=== PATIENT | female | born 1985 | race Caucasian/White ===

== ENCOUNTER → 2020-07-14 | Outpatient (CLI) | payer OTHER ==
--- NOTE | 2020-07-14 11:38 | MM ---
Reason for exam: clinical finding. History: Taking hormonal contraceptives beginning at age 18. Physical Findings: Nurse did not find any significant physical abnormalities on exam. MG 3D Diag Mammo W/Cad INES Bilateral CC, MLO, and XCCL view(s) were taken. The breast tissue is heterogeneously dense. This may lower the sensitivity of mammography. These results were verbally communicated with the patient and result sheet given to the patient on 07/14/20. ASSESSMENT: Incomplete: need additional imaging evaluation, BI-RAD 0 RECOMMENDATION: Ultrasound of both breasts. (retroareolar for milky white nipple discharge)
--- NOTE | 2020-07-14 11:40 | USB ---
Reason for exam: additional evaluation requested from abnormal screening. History: Taking hormonal contraceptives beginning at age 18. US Breast Limited BILAT Right limited breast ultrasound including focal area of concern, retroareolar and axilla demonstrates ducts at the posterior nipple and a 0.5cm oval lymph node at the axilla tail. Left limited breast ultrasound including focal area of concern, retroareolar and axilla demonstrates ducts at the posterior nipple. Mild bilateral retroareolar ductal dilation is benign appearing. Clinical follow up and prolactin level. These results were verbally communicated with the patient and result sheet given to the patient on 07/14/20. ASSESSMENT: Benign, BI-RAD 2 RECOMMENDATION: Routine screening mammogram of both breasts in 1 year. Manage patient on a clinical basis.
== END | disposition home or self-care (01) ==
LOC: RADMAMWWP 07:00
PROVIDERS: ATTEND Obstetrics & Gynecology
DX: R92.2 Inconclusive mammogram (principal)
CPT/HCPCS: 77062; 77066

== ENCOUNTER → 2021-04-30 | Outpatient (CLI) | payer OTHER ==
--- NOTE | 2021-04-30 07:52 | MR ---
EXAMINATION TYPE: MR angio head wo con DATE OF EXAM: 04/30/2021 COMPARISON: NONE HISTORY: Family history of aneurysm with migraine headache. TECHNIQUE: Time of flight images focusing on the [place] were performed without contrast.. 2-D and 3-D postprocessing imaging is performed on a independent workstation and reviewed. FINDINGS: There are codominant vertebral arteries. The vertebral arteries are patent to the basilar j unction. Hypoplastic bilateral posterior communicating arteries. No significant focal stenosis or ane urysm in the posterior circulation. Images of the anterior circulation show patent anterior communicating artery. There is no significant focal stenosis or aneurysm identified. IMPRESSION: No aneurysm at the level of the [place].
== END | disposition home or self-care (01) ==
LOC: RADMRIMAIN 06:39
PROVIDERS: ATTEND Physician Assistant Medical
DX: G43.909 Migraine, unspecified, not intractable, without status migrainosus (principal); Z82.49 Family history of ischemic heart disease and other diseases of the circulatory system
CPT/HCPCS: 70544

== ENCOUNTER → 2021-09-29 | Outpatient (CLI) | payer OTHER ==
--- NOTE | 2021-09-29 11:19 | P.SLEEP ---
History of Present Illness DATE: 09/29/2021 CONSULTATION/NEW PATIENT EVALUATION HISTORY OF PRESENT ILLNESS/SLEEP-WAKE EVALUATION: 36 year old lady had been evaluated in the sleep center for possible obstructive sleep apnea hypopnea syndrome. SLEEP SCHEDULE: Usually sleep schedule on weekdays from 10 PM to 6 AM, during days off from 10 PM to 7 AM. FALLING ASLEEP: Sometimes patient has problems with falling asleep, has TV set in bedroom. DURING SLEEP: Patient usually sleeps on the side of stomach position, with the loud snoring and witnessed episodes of sleep apnea. She may wake up from sleep up to 2 times with the gasping for air and panic attacks. Patient described a lot of vivid dreams during the sleep, questionable history of hypnogogical hallucinations. No sleep paralysis, or cataplexy. DURING THE DAY/WAKE STATE: In the morning patient wake up tired, has problems with paying attention, concentration, irritability and anxiety. [place] sleepiness scale is 9. Usually patient does not take any naps. PAST MEDICAL HISTORY: Seasonal ALLERGY, chronic ear infection. PAST SURGICAL HISTORY: , tonsillectomy, adenoidectomy, bilateral knee arthroscopic surgery. MEDICATIONS: Antihistamines out of the counter rarely. SOCIAL HISTORY: Positive for smoking 2 cigarettes a day up to 10 years in the past , alcohol consumption occasional. FAMILY HISTORY: Snoring, emphysema, diabetes, thyroid problems. REVIEW OF SYSTEMS: Loud snoring, witnessed episodes of sleep apneas. No fevers. No double vision. No recent chest pain. No shortness of breath. No abdominal pain. No bleeding episodes. No blood in urine. No seizure episodes. PHYSICAL EXAMINATION: GENERAL: A pleasant patient without any distress. VITAL SIGNS: BP 119/79 , HR 73 , RR 16 , weight 238 pounds, height 5 foot 3-7/8 inches, body mass index 41.2 . HEENT: PERRLA, EOMI. Evaluation of oropharynx showed tongue protrudes midline, low position of soft palate Mallampati 3. NECK: Supple. No JVD. Thyroid is not palpable. 17-1/4 inches in circumference. LUNGS: Clear to percussion and to auscultation. Good air exchange. No wheezing or rhonchi. HEART: S1, S2 regular. No murmurs, gallops or rubs. ABDOMEN: Soft and nontender. Bowel sounds are present. No organomegaly appreciated. EXTREMITIES: No clubbing or cyanosis. CAMPUS SECURITY OFFICER: Awake, alert, and oriented x3. Cranial nerves 2 to 7 intact. There is no fasciculation or atrophy noted. No focal deficits observed. ASSESSMENT: 1. Loud snoring, witnessed episodes of sleep apneas, low position of soft palate Mallampati 3, whide neck 17-1/4 inches in circumference. Obstructive sleep apnea hypopnea syndrome 2. Obesity body mass index 41.2. 3 seasonal ALLERGY. 4. History of chronic ear infection. 5 status post bilateral knee arthroscopic surgery. 6. Status post tonsillectomy and adenoidectomy. PLAN: 1. Polysomnography for evaluation of patient's breathing during sleep. 2. CPAP/BiPAP titration if sleep study confirms obstructive sleep apnea- hypopnea syndrome, should be done lady is slowly not up to very high pressure because patient has history of chronic ear infection. 3. Preferable position during sleep on the side. 4. No driving if patient feels any sleepiness. Patient is aware of civil and criminal liability for unsafe driving. 5. Sleep hygiene with regular sleep time for at least 7.5-8 hours. 6. Watching and losing weight. Thank you very much for referring this patient for consultation. Sincerely, Teddy Munoz MD, PhD, FAASM. Diplomat of [place] Board of Sleep Medicine, Sleep Medicine Board by [place] Board of Medical Specialities [place] Board of Internal Medicine [employer] [facility] [place] Sleep Note - Sleep Note Sleep Note: Temperature: Pulse Rate: Respiratory Rate: Blood Pressure: SpO2: Height: Weight: BMI: Neck Circumference:
== END ==
LOC: SLEEP 10:20
PROVIDERS: ATTEND Internal Medicine
DX: G47.33 Obstructive sleep apnea (adult) (pediatric) (principal); E66.9 Obesity, unspecified; Z68.41 Body mass index [BMI] 40.0-44.9, adult; Z90.09 Acquired absence of other part of head and neck; Z98.890 Other specified postprocedural states; J30.2 Other seasonal allergic rhinitis; Z86.19 Personal history of other infectious and parasitic diseases
CPT/HCPCS: 99211

== ENCOUNTER → 2021-11-19 | Outpatient (CLI) | payer BC ==
--- NOTE | 2021-11-22 19:52 | MM ---
Reason for Exam: Screening (asymptomatic). Last mammogram was performed 1 year(s) and 4 month(s) ago. Patient History: Menarche at age 12. First Full-Term at age 27. Hormonal Contraceptives, starting at age 18. Risk Values: Chelo 5 year model risk: 0.5%. NCI Lifetime model risk: 10.3%. Prior Study Comparison: 07/14/2020 Bilateral Diagnostic Mammogram, [facility]. Tissue Density: The breast tissue is heterogeneously dense. This may lower the sensitivity of mammography. Findings: Analyzed By CAD. Asymmetric density central right breast on the XCCL view does not persist on the regular CC view. Other scattered areas of asymmetric density remain unchanged. No significant change from prior exams. Overall Assessment: Benign, BI-RAD 2 Management: Screening Mammogram of both breasts in 1 year. 1. Patient should continue monthly self breast exams. 2. A clinical breast exam by your physician is recommended on an annual basis. 3. This exam should not preclude additional follow-up of suspicious palpable abnormalities. Electronically signed and approved by: Chivo Morales M.D. Radiologist
== END | disposition home or self-care (01) ==
LOC: RADMAMWWP 15:14
PROVIDERS: ATTEND Obstetrics & Gynecology
DX: Z12.31 Encounter for screening mammogram for malignant neoplasm of breast (principal)
CPT/HCPCS: 77063; 77067

== ENCOUNTER → 2021-12-22 | Outpatient (CLI) | payer BC ==
--- NOTE | 2021-12-22 15:29 | P.PN ---
Subjective DATE: 12/22/2021 FOLLOW UP VISIT. 36-year-old lady had been followed in sleep center to discuss results of sleep study and following plan. I discuss results over sleep study with patient in details. Sleep study showed apnea-hypopnea index 6.4, REM sleep 25.7, on the side position 0.6, and in supine position 8.3. Patient occasionally feels some sleepiness, today show [place] Sleepiness Scale is 8. We discussed possibility to start usage of CPAP equipment, but at the present time patient prefers positional therapy and losing weight. MEDICATIONS:1. Occasional antihistamines During physical exam: GENERAL: A pleasant patient without any distress. VITAL SIGNS: BP BP 110/79, HR 64, RR 12, weight 238, temperature 98, oxygen saturation at room air 94 % . HEENT: PERRLA, EOMI.low position of soft palate, Mallapati 3 . NECK: Supple. No JVD. LUNGS: Clear to percussion and to auscultation. Good air exchange. No wheezing or rhonchi. HEART: S1, S2 regular. ABDOMEN: Soft and nontender. Obese EXTREMITIES: No clubbing or cyanosis. INSURANCE ACCOUNT ASSISTANT: Awake, alert, and oriented x3. No focal deficit. Impressions: 1. Obstructive sleep apnea-hypopnea syndrome in very mild range mostly related to the supine position and REM sleep. Normal oxygenation during sleep. 2. Obesity, body mass index 41. 3. Seasonal ALLERGY. 4. History of chronic ear infection. 5. Status post bilateral knee arthroscopic surgery. 6. Status post tonsillectomy and adenoidectomy. Plan: 1. Patient should've sleep only on the side position and slightly up. I discussed possibility to use tennis ball technique or other options. 2. Sleep hygiene with regular time in bed for at least 8 hours. 3. Precautions related to driving. No driving if feel any sleepiness. 4.Watching and losing weight. 8. Follow up visit in 12 months or earlier if patient has any problems. Thank you very much for allowing me to participate in the management of your patient. Teddy Munoz MD, PhD, FAASM. Diplomat of [place] Board of Sleep Medicine, Sleep Medicine Board by [place] Board of Internal Medicine [employer] [facility] [place]
== END | disposition home or self-care (01) ==
LOC: SLEEP 14:50
PROVIDERS: ATTEND Internal Medicine
DX: G47.33 Obstructive sleep apnea (adult) (pediatric) (principal); E66.9 Obesity, unspecified; Z68.41 Body mass index [BMI] 40.0-44.9, adult; J30.2 Other seasonal allergic rhinitis; Z98.890 Other specified postprocedural states
CPT/HCPCS: 99212

== ENCOUNTER 2022-05-30 11:05 | Day surgery (SDC) | payer BC ==
--- NOTE | 2022-05-26 23:15 | HP ---
HISTORY AND PHYSICAL DATE OF SCHEDULED SURGERY: 05/30/2022 HISTORY OF PRESENT ILLNESS: The patient is a 10, para 1-0-11-1 who presents to the office with continuing significant issues with heavy bleeding and is regularly bleeding through her usual protection. She tried using Mirena and cycles get less heavy, but lasts for 10-15 days at a time. Cycles with the IUD have returned to 4-5 days in length, but with significant heavy bleeding and clotting. She additionally has also failed oral contraceptives in the past. She is requesting definitive treatment with hysteroscopy and NovaSure endometrial ablation and has agreed to intraoperative bilateral tubal fulguration with electrocautery as she is still in need of contraception. She has no further desire for childbearing. PAST MEDICAL HISTORY: Significant for asthma and history of kidney stones. PAST SURGICAL HISTORY: Significant for section in 2011 as well as D and C on several occasions. She additionally had a number of different knee arthroscopies. There is no reported history of anesthetic concerns. OBSTETRICAL HISTORY: 10, para 1-0-11-1 with numerous spontaneous miscarriages and 2 ectopic pregnancies. She had 1 post-dates section. CONTRACEPTION: Current method of contraception has been most recently condoms. GYNECOLOGIC HISTORY: Unremarkable with no history of any infections to include STDs. FAMILY HISTORY: Noncontributory. SOCIAL HISTORY: The patient is single and is a former smoker. She reports occasional alcohol and no other social concerns. CURRENT MEDICATIONS: 1. Claritin as needed. 2. B12. 3. Iron supplements daily. ALLERGIES: She reports allergies to penicillins, Ceclor, and sulfa with reaction not reported. REVIEW OF SYSTEMS: Confined to history of present illness. PHYSICAL EXAMINATION: VITAL SIGNS: Stable. The patient is afebrile. GENERAL: This is a well-developed, well-nourished white female, in no acute distress. HEART: Regular rhythm and rate without murmur. LUNGS: Clear to auscultation bilaterally in all michaels. ABDOMEN: Nondistended, has normoactive bowel sounds, soft, nontender, without any palpable masses, hepatosplenomegaly, or hernias. EXTREMITIES: Without any cyanosis, clubbing, or edema and are nontender to palpation bilaterally. PELVIC: Demonstrates normal external genitalia and BUS with normal vaginal mucosa. There is no cervical motion tenderness. Uterus is approximately 5-6 weeks in size, mid plane, mobile, nontender, normal in shape. Endometrial biopsy performed at the time of examination was benign. The adnexa are normal and nontender without mass bilaterally. ASSESSMENT AND PLAN: 1. Menorrhagia. 2. Family planning. The patient has requested definitive treatment with laparoscopic bilateral tubal fulguration rather than 1 Filshie clips. She additionally has requested diagnostic hysteroscopy with NovaSure endometrial ablation. The risks and complications of these procedures have been discussed at length including risk for bleeding, bleeding requiring transfusion, infection, injury to local structures to specifically include the bowel, bladder, and ureters for the laparoscopic portion and uterine perforation, Asherman syndrome, and potential hematometra for the ablation portion. She has understood all of these complications and has agreed to proceed. We are scheduled for the above procedures on the morning of May 30. AKIN / SETH: [id number] /
[~2022-05-30 11:05] MED LIST: DEXAMETHASONE SOD PHOSPHATE 4 MG/ML 1 ML VIAL IV ONE; HYDROmorphone 0.5 MG/0.5 ML SYRINGE IVP PRN; LACTATED RINGERS 1,000 ML IV SCH; MIDAZOLAM 2 MG/2 ML VIAL IV PRN; ONDANSETRON 4 MG/2 ML VIAL IVP ONE; Pre Op ABX Message 1 EACH MISC MISCELLANE ONE; SCOPOLAMINE 1 MG/72 HR PATCH TRANSDERM ONE
[2022-05-30 11:57] LABS: Glucose,Whole Blood 80 mg/dL (70-110)
[2022-05-30] MEDS ORDERED: LACTATED RINGERS 1,000 ML IV ONE (12:00)
[2022-05-30] MEDS ORDERED: BUPIVACAINE (PF) 0.5% 30 ML VIAL SQ ONE ×3 (12:56→13:50)
[2022-05-30] MEDS ORDERED: MIDAZOLAM 2 MG/2 ML VIAL ONE (12:59)
[2022-05-30] MEDS ORDERED: KETOROLAC 15 MG/ML 1 ML VIAL ONE (12:59)
[2022-05-30] MEDS ORDERED: GLYCOPYRROLATE 0.2 MG/ML 2 ML VIAL ONE (12:59)
[2022-05-30] MEDS ORDERED: HYDROmorphone (PF) 1 MG/ML ONE (12:59)
[2022-05-30] MEDS ORDERED: PROPOFOL 10 MG/ML 20 ML VIAL IV ONE (12:59)
[2022-05-30] MEDS ORDERED: ROCURONIUM 10 MG/ML (5 ML VIAL) IV ONE (12:59)
[2022-05-30] MEDS ORDERED: NEOSTIGMINE 1 MG/ML 10 ML VIAL ONE (12:59)
[2022-05-30] MEDS ORDERED: LIDOCAINE 2% INJ 20 MG/ML (2 ML VIAL) ONE (12:59)
[2022-05-30] MEDS ORDERED: fentaNYL (PF) 50 MCG/ML 2 ML AMP ONE (12:59)
[2022-05-30] MEDS ORDERED: KETOROLAC 15 MG/ML 1 ML VIAL IVP PRN (14:02)
[2022-05-30] MEDS ORDERED: METOCLOPRAMIDE 5 MG/ML 2 ML VIAL IVP PRN (14:02)
[2022-05-30] MEDS ORDERED: Acetaminophen-Codeine 300-30mg TAB PO PRN ×2 (14:02)
[2022-05-30] MEDS ORDERED: ONDANSETRON 4 MG/2 ML VIAL IVP PRN (14:02)
[2022-05-30] MEDS ORDERED: SIMETHICONE 80 MG CHEWABLE PO PRN (14:02)
[2022-05-30] MEDS ORDERED: diphenhydrAMINE 50 MG/ML 1 ML VIAL IVP PRN (14:02)
[2022-05-30] MEDS ORDERED: IBUPROFEN 600 MG TAB PO PRN (14:02)
--- NOTE | 2022-05-30 14:11 | P.OP ---
Date of Procedure: 05/30/22 Preoperative Diagnosis: #1. Menorrhagia #2. Undesired fertility Postoperative Diagnosis: Same Procedure(s) Performed: #1. Laparoscopic bilateral tubal fulguration with electrocautery #2. Diagnostic hysteroscopy #3. NovaSure endometrial ablation Anesthesia: EARL Surgeon: Vineet Vital Estimated Blood Loss (ml): 5 IV fluids (ml): 600 Urine output (ml): 25 Pathology: none sent Condition: stable Disposition: PACU Operative Findings: Preoperative pelvic examination demonstrated a roughly 5 week midplane mobile normal shaped uterus with normal adnexa bilaterally. Intraoperatively the uterus, tubes, and ovaries were entirely normal to inspection. There is no evidence of any pathology in the pelvis to include endometriosis. The bilateral fallopian tubes were thoroughly fulgurated for approximately a length of 3-4 cm on each side. The small bowel, large bowel, appendix, liver, diaphragm were entirely normal to inspection. The uterus sounded to 9 cm while the cervix was approximate 4 cm. The settings for the NovaSure tool where a length of 5.0 cm, a width of 3.4 cm for a total power of 94 W. There is no evidence of any hysteroscopic pathology and the bilateral tubal ostia were seen. After total run time of 77 seconds, the base unit read "procedure complete." The postprocedural result appeared to be excellent. The patient is a borderline candidate for vaginal hysterectomy and would likely do better with a da Debbie approach should it become necessary. Description of Procedure: The patient was prepped and draped in usual fashion after general endotracheal anesthesia was administered by the anesthesiologist. A weighted speculum was placed and the bladder drained of approximately 25 mL of clear ar urine. The anterior lip of the cervix was grasped with a single-tooth tenaculum and an acorn cannula placed for manipulation. Attention was then turned to the abdomen where a 5 mm incision was made in a semilunar fashion within the umbilicus allowing insertion of a 5 mm optical trocar under direct visualization without difficulty. A pneumoperitoneum was established and Trendelenburg positioning utilized to the bowel from the pelvis. A site was selected in the midline proximal a 4-5 synovators above the pubic symphysis where a scar existed. A 5 mm incision was made in the pre-existing scar line insertion of a 5 mm optical trocar under direct vision station without difficulty. The blunt probe was utilized to sweep for the bowel from the pelvis and the findings are as noted above. The probe was replaced with a Voxieppinger bipolar cautery forceps which was utilized to cauterize approximately 3-4 cm of fallopian tube beginning at the isthmic portion moving towards the ancillary portion across the entire thickness of the fallopian tube. A similar operation was carried out on the opposite side without difficulty. Reexamination of the abdomen demonstrated no evidence of pathology as noted above either in the pelvis or in the middle and upper abdomen. All instrumentation was then removed and the pneumoperitoneum evacuated through the 2 trochars which were then removed. The skin was reapproximated with interrupted subcuticular stitches of 4-0 Vicryl which were then infused with a total of 8 mL of half percent Marcaine without epinephrine equally divided between the 2 incisions. There were then covered with Steri-Strips and Band-Aids. Attention was returned to the vagina where the acorn cannula was removed and the uterus sounded to 9 cm with cervical length of 4 cm. Serial dilation was carried out to admit the diagnostic hysteroscope which was placed into the cavity. The cavity was distended with normal saline and the findings were entirely normal as noted above. The bilateral tubal ostia were seen and there was no apparent pathology. The scope was then set aside and the NovaSure tool placed into the endometrial cavity, opened, and seated well. The settings as noted above with a length of 5.0 cm, a width of 3.4 cm for a total power of 94 W. The cavity check was attempted and passed without difficulty, the tool was enabled, and the run was started. After a run time of 77 seconds, the base unit disengaged and wrote "procedure complete." All instrumentation was removed and the diagnostic hysteroscope replaced demonstrating what appeared to be an excellent result. The tenaculum was removed and there was no ongoing bleeding from either the tenaculum site or from the cervix itself. Estimated blood loss for the entire case was approximate 5 mL or less. There were no complications. All sponge, instrument, needle counts were correct. The patient tolerated the procedure well and proceeded to the recovery room in stable condition.
[2022-05-30 14:12] VITALS: RESP 16; TEMP 97.2
[2022-05-30] MEDS ORDERED: LACTATED RINGERS 1,000 ML IV SCH (14:15)
[2022-05-30 15:36] VITALS: BP 118/79; PULSE 81
[2022-05-31] MEDS ORDERED: ACETAMINOPHEN TAB 325 MG TAB PO PRN (14:03)
== END 2022-05-30 15:40 | disposition home or self-care (01) ==
LOC: OR 11:05
PROVIDERS: ATTEND Obstetrics & Gynecology
DX: N92.0 Excessive and frequent menstruation with regular cycle (principal); J45.909 Unspecified asthma, uncomplicated; Z30.2 Encounter for sterilization; Z87.442 Personal history of urinary calculi; Z87.891 Personal history of nicotine dependence
CPT/HCPCS: 81025; 58670; 58563; J2250; J1100; J2710; J2405; J3010; J1170 ×2; J1885; J2704; J2001

== ENCOUNTER → 2022-06-06 | Outpatient (CLI) | payer BC ==
--- NOTE | 2022-06-06 19:45 | CT ---
EXAMINATION TYPE: CT abdomen pelvis wo con DATE OF EXAM: 06/06/2022 COMPARISON: none HISTORY: Rt side kidney stone. CT DLP: 1347 mGycm Examination of the solid and hollow viscera is limited given the lack of contrast. FINDINGS: LUNG BASES: No evidence for nodule. No evidence for infiltrate. LIVER/GB: Cholelithiasis. No space-occupying hepatic lesion. PANCREAS: No pancreatic mass identified. No inflammatory process seen. SPLEEN: No evidence for splenomegaly. No intrasplenic lesions seen. ADRENALS: No adrenal nodules identified. No evidence for thickening. KIDNEYS: No evidence for renal mass. 1.1 cm nonobstructing calculus right mid kidney. 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 No additional nephrolithiasis. No hydronephrosis. BOWEL: Appendix has a normal appearance. No evidence of bowel obstruction. No inflammatory process. Lymph nodes: No evidence for adenopathy greater than 1 cm. Abdominal aorta: Atheromatous changes seen. No evidence for aneurysm. Genital organs: Lobulated appearance of the uterus may reflect underlying leiomyomatous change. No ov ton or adnexal masses. Other: No significant abnormality. IMPRESSION: 1. Nonobstructing right-sided nephrolithiasis. 2. Leiomyomatous change of the uterus difficult to exclude.
== END | disposition home or self-care (01) ==
LOC: RADCTMAIN 18:46
PROVIDERS: ATTEND Urology
DX: N20.0 Calculus of kidney (principal); D25.9 Leiomyoma of uterus, unspecified
CPT/HCPCS: 74176

== ENCOUNTER 2022-07-11 05:56 | Day surgery (SDC) | payer BC ==
--- NOTE | 2022-07-07 19:21 | P.GSHP ---
History of Present Illness H&P Date: 07/07/22 37 yo female who was at for back issues. AN xray was done identifying a probable renal stone in the right kidney. SHe has a history of stones, I say the oatient david ct scan was done to assess the anatomy of the kidney and a 1 cm right renal pelvic stone was identified, She was given treatment options and comes for eswl right - Constitutional Constitutional: Denies chills, Denies fever - EENT Eyes: denies blurred vision, denies pain Ears, nose, mouth and throat: Denies headache, Denies sore throat - Cardiovascular Cardiovascular: Denies chest pain, Denies shortness of breath - Respiratory Respiratory: Denies cough, Denies 7 - Gastrointestinal Gastrointestinal: Denies abdominal pain, Denies diarrhea, Denies nausea, Denies vomiting - Genitourinary (Female) Genitourinary: Denies dysuria, Denies hematuria - Genitourinary (Male) Genitourinary: Denies dysuria, Denies hematuria - Musculoskeletal Musculoskeletal: Denies myalgias - Integumentary Integumentary: Denies pruritus, Denies rash - Neurological Neurological: Denies numbness, Denies weakness - Psychiatric Psychiatric: Denies anxiety, Denies depression - Endocrine Endocrine: Denies fatigue, Denies weight change Past Medical History Past Medical History: Asthma, Renal Disease, Skin Disorder Additional Past Medical History / Comment(s): Bilateral knee pain with multiple surgeries, current kidney stones and past kidney stones, past asthma attacks in teens, forms keloids with surgeries. History of Any Multi-Drug Resistant Organisms: None Reported Past Surgical History: Adenoidectomy, Ear Surgery, Orthopedic Surgery, Tonsillectomy Additional Past Surgical History / Comment(s): Multiple bilateral knee surgeries/arthroscopics and both knees bilateral tibia rotations, L knee has donor cartlidge replacement, multiple bilateral ear surgeries for myringotomies/tubes, x1 Past Anesthesia/Blood Transfusion Reactions: No Reported Reaction Additional Past Anesthesia/Blood Transfusion Reaction / Comment(s): Never had blood transfusion. Smoking Status: Former smoker - Past Family History Mother Family Medical History: Cancer Additional Family Medical History / Comment(s): Basal cell skin cancer Father Family Medical History: Cancer Additional Family Medical History / Comment(s): Basal cell skin cancer Medications and Allergies Home Medications Medication Instructions Recorded Confirmed Type Ibuprofen 800 mg PO TID 05/26/22 05/30/22 History Iron 22 mg PO QAM 05/26/22 05/30/22 History Loratadine-Pseudoeph 10-240 mg 1 tab PO QAM PRN 05/26/22 05/30/22 History [Claritin-D 24 Hour] Multivitamin [Multivitamins Adult 1 tab PO QAM 05/26/22 05/30/22 History Gummies] Semaglutide [Ozempic] 0.5 mg SQ WEEKLY 05/26/22 05/30/22 History Allergies Allergy/AdvReac Type Severity Reaction Status Date / Time cefaclor [[facility]] Allergy Dyspnea Verified 05/26/22 09:59 latex Allergy Rash/Hives Verified 05/26/22 10:28 Penicillins Allergy INTERSTITIAL Verified 05/26/22 10:24 BLEEDING. Sulfa (Sulfonamide Allergy Wheezing Verified 05/30/22 11:42 Antibiotics) Surgical - Exam - General well developed, well nourished, no distress - Eyes normal ocular movement, no icteric - ENT no hearing loss, no congestion - Neck no masses, trachea midline - Respiratory normal respiratory effort, clear to auscultation - Abdomen Abdomen: soft, non tender, no guarding, no rigid, no rebound - Integumentary no rash, no abnormal pigmentation - Neurologic no disoriented, no combative - Psychiatric oriented to time, oriented to person, oriented to place, speech is normal, memory intact Results - Imaging Abdominal x-ray: report reviewed, image reviewed CT scan - abdomen: report reviewed, image reviewed CT scan - pelvis: report reviewed, image reviewed Assessment and Plan Assessment: Impression: Right renal pelvic stone. Plan: Eswl right{
[2022-07-08 09:51] VITALS: BMI 41.6
[2022-07-11] MEDS ORDERED: LACTATED RINGERS 1,000 ML IV ONE (06:49)
[2022-07-11 07:01] VITALS: TEMP 98
[2022-07-11] MEDS ORDERED: ONDANSETRON 4 MG/2 ML VIAL ONE (07:04)
[2022-07-11] MEDS ORDERED: ONDANSETRON 4 MG/2 ML VIAL IVP ONE (07:17)
[2022-07-11] MEDS ORDERED: SCOPOLAMINE 1 MG/72 HR PATCH TRANSDERM ONE (07:18)
[2022-07-11] MEDS ORDERED: DEXAMETHASONE SOD PHOSPHATE 4 MG/ML 1 ML VIAL IVP ONE (07:18)
[2022-07-11] MEDS ORDERED: MIDAZOLAM 2 MG/2 ML VIAL ONE (07:20)
[2022-07-11] MEDS ORDERED: PROPOFOL 10 MG/ML 20 ML VIAL IV ONE (07:20)
[2022-07-11] MEDS ORDERED: KETAMINE 10 MG/ML 20 ML VIAL ONE (07:20)
[2022-07-11] MEDS ORDERED: fentaNYL (PF) 50 MCG/ML 2 ML AMP ONE (07:20)
--- NOTE | 2022-07-11 07:50 | P.OP ---
Date of Procedure: 07/11/22 Preoperative Diagnosis: renal calculous, right Postoperative Diagnosis: Renal calculus,right Procedure(s) Performed: Extracorporeal shockwave lithotripsy right, 2500 shocks at energy level IV Anesthesia: MAC Surgeon: Luis Burns Pathology: none sent Condition: stable Disposition: PACU Indications for Procedure: The patient is 37 with history of stones. She has a 1 cm right renal pelvic stone. She comes for shockwave lithotripsy. Description of Procedure: Patient brought to the operating suite. Given IV sedation on the lithotripsy table. The stone was seen in 2 views of fluoroscopy. A total 2500 shocks at energy level IV were administered by the Dornier lithotripter compact delta 2. The stone has fractured. The patient is awake and returned recovery room good condition Impression shockwave lithotripsy right. Due to the size of the stone the patient may need a second lithotripsy at a later date. We'll see how she responds with a KUB for 1 week.
[2022-07-11] MEDS ORDERED: KETOROLAC 15 MG/ML 1 ML VIAL ONE (08:14)
[2022-07-11] MEDS ORDERED: KETOROLAC 15 MG/ML 1 ML VIAL IVP ONE (08:15)
[2022-07-11 08:32] VITALS: RESP 16
[2022-07-11 09:05] VITALS: BP 113/79; PULSE 66
--- NOTE | 2022-07-11 16:58 | XR ---
EXAMINATION TYPE: XR KUB DATE OF EXAM: 07/11/2022 Comparison: None Clinical History: 37-year-old female right-sided stones, preoperative x-ray Findings: There is a 1.6 cm stone in the right mid abdomen. Nonobstructive bowel gas pattern. Left-sided pelvic phleboliths. Minimal scattered stool burden. Lung bases are clear. Impression: A 1.6 cm right renal calculus.
== END 2022-07-11 09:23 | disposition home or self-care (01) ==
LOC: ORWHC2ENDO 05:56
PROVIDERS: ATTEND Urology
DX: N20.0 Calculus of kidney (principal); J45.909 Unspecified asthma, uncomplicated; N28.9 Disorder of kidney and ureter, unspecified; Z98.890 Other specified postprocedural states; Z90.89 Acquired absence of other organs; Z96.653 Presence of artificial knee joint, bilateral; Z87.891 Personal history of nicotine dependence; Z79.1 Long term (current) use of non-steroidal anti-inflammatories (NSAID); Z79.899 Other long term (current) drug therapy; Z91.040 Latex allergy status; Z88.2 Allergy status to sulfonamides; Z88.1 Allergy status to other antibiotic agents; Z88.0 Allergy status to penicillin
CPT/HCPCS: 81025; 74018; 50590; J2250; J1100; J2405; J3010; J1885; J2704

== ENCOUNTER → 2022-07-20 | Outpatient (CLI) | payer BC ==
--- NOTE | 2022-07-20 15:18 | XR ---
EXAMINATION TYPE: XR KUB DATE OF EXAM: 07/20/2022 3:09 PM CLINICAL HISTORY: Postop right ureter calculus one week ago TECHNIQUE: Two supine KUB images of the abdomen are obtained. COMPARISON: Prior abdominal x-ray 9 days ago. FINDINGS: There is now fragmented calculi mid to lower pole level of right kidney with largest calcul us measuring near 10 mm. No definitive left-sided nephrolithiasis. Overall nonobstructive bowel gas pattern. Tiny left-sided pelvic phleboliths redemonstrated. Osseous structures are intact. IMPRESSION: As above.
== END | disposition home or self-care (01) ==
LOC: RADXRMAIN 14:53
PROVIDERS: ATTEND Urology
DX: N20.1 Calculus of ureter (principal)
CPT/HCPCS: 74018

== ENCOUNTER → 2022-08-18 | Outpatient (CLI) | payer BC ==
--- NOTE | 2022-08-18 13:30 | XR ---
EXAMINATION TYPE: XR KUB DATE OF EXAM: 08/18/2022 HISTORY: Pain Comparison: 07/20/2022 Single KUB is submitted for interpretation. Findings: Right renal calculi: Multiple calcifications in the lower pole right kidney with the largest calculus measuring 1.1 cm versus 1.0 cm previously. Right ureteral calculi: None Visualized. Left renal calculi: None Visualized. Left ureteral calculi: None Visualized. Pelvic calcifications: None Visualized. Bowel gas pattern is unremarkable. No free air. No mass effects. IMPRESSION: 1. Multiple calcifications in the lower pole right kidney with the largest calculus measuring 1.1 cm versus 1.0 cm previously.
== END | disposition home or self-care (01) ==
LOC: RADXRMAIN 09:43
PROVIDERS: ATTEND Urology
DX: N20.0 Calculus of kidney (principal)
CPT/HCPCS: 74018

== ENCOUNTER → 2022-08-26 | Outpatient (CLI) | payer BC ==
[2022-08-26 20:36] LABS: Carbon Dioxide 21.5 mmol/L (21.6-31.8); Chloride 108 mmol/L (96-109); Potassium 4.5 mmol/L (3.5-5.5); Sodium 140 mmol/L (135-145)
[2022-08-26 20:42] LABS: Appearance,Urine Clear (Clear); Bilirubin,Urine Negative (Negative); Blood,Urine Trace (Negative); Color,Urine Yellow (Yellow); Ketones,Urine Negative (Negative); Nitrite,Urine Positive (Negative); Specific Gravity,Urine 1.016 (1.001-1.030); Urobilinogen,Urine 0.2 E.U./DL
[2022-08-26 20:49] LABS: Bacteria,Urine 2+ (None Seen)
[2022-08-26 21:21] LABS: Basophils # (A) 0.04 X 10*3/uL (0.00-0.10); Basophils % (A) 0.5 %; Eosinophils # (A) 0.34 X 10*3/uL (0.04-0.35); Eosinophils % (A) 4.1 %; HCT 39.9 % (37.2-46.3); HGB 13.3 d/dL (12.0-15.0); Lymphocytes # (A) 2.62 X 10*3/uL (0.90-5.00); MCH 31.2 pg (27.0-32.0); MCHC 33.3 d/dL (32.0-37.0); MCV 93.7 FL (80.0-97.0); Mean Platelet Volume 10.9 FL (9.5-12.2); Monocytes # (A) 0.47 X 10*3/uL (0.20-1.00); Monocytes % (A) 5.7 %; NRBC Per 100 WBC 0 X 10*3/uL (0.00-0.01); Neutrophils # (A) 4.71 X 10*3/uL (1.80-7.70); Neutrophils % (A) 57.5 %; Platelet Count 256 X 10*3/uL (140-440); RBC 4.26 X 10*6/uL (4.10-5.20); RDW 12.5 % (11.5-14.5)
== END | disposition home or self-care (01) ==
LOC: LABPAT 12:54
PROVIDERS: ATTEND Urology
DX: Z01.812 Encounter for preprocedural laboratory examination (principal)
CPT/HCPCS: 80051; 81001; 82565; 84520; 85025

== ENCOUNTER → 2022-09-05 | Outpatient (CLI) | payer BC ==
--- NOTE | 2022-09-06 08:05 | XR ---
EXAMINATION TYPE: XR KUB DATE OF EXAM: 09/05/2022 5:34 PM INDICATION: Patient age:Female; 37 years old; Reason for study: N20.0; [facility]. COMPARISON: 08/18/2022 TECHNIQUE: One radiographic view of the abdomen was obtained. FINDINGS: Right renal calculi measuring up to 10 mm and a group of constipation measuring up to 13 mm . No left renal calculi. The bowel gas pattern is nonspecific without dilated loops of small or large bowel. There is no evidence for organomegaly or pneumoperitoneum. The osseous structures are intact . Fecal material and gas are demonstrated throughout the colon and rectum. IMPRESSION: 1. Right renal calculi 2. Nonspecific bowel gas pattern without radiographic evidence for acute process.
== END | disposition home or self-care (01) ==
LOC: RADXRMAIN 17:21
PROVIDERS: ATTEND Family Medicine
DX: N20.0 Calculus of kidney (principal)
CPT/HCPCS: 74018

== ENCOUNTER → 2022-10-11 | Outpatient (CLI) | payer BC ==
--- NOTE | 2022-10-11 11:45 | XR ---
EXAMINATION TYPE: XR KUB DATE OF EXAM: 10/11/2022 10:45 AM INDICATION: Patient age:Female; 37 years old; Reason for study: N20.0 Calculus kidney; COMPARISON: 08/18/2022, 09/05/2022 TECHNIQUE: One radiographic view of the abdomen was obtained. FINDINGS: Densities are thought to represent the calculi measuring up to 10 mm and a group of constip ation measuring up to 13 mm. No left renal calculi. The bowel gas pattern is nonspecific without dila madhavi loops of small or large bowel. There is no evidence for organomegaly or pneumoperitoneum. The os seous structures are intact. Fecal material and gas are demonstrated throughout the colon and rectu m. IMPRESSION: 1. Right renal calculi 2. Nonspecific bowel gas pattern without radiographic evidence for acute process.
== END | disposition home or self-care (01) ==
LOC: RADXRMAIN 10:31
PROVIDERS: ATTEND Urology
DX: N20.0 Calculus of kidney (principal)
CPT/HCPCS: 74018

== ENCOUNTER → 2023-04-04 | Outpatient (CLI) | payer BC ==
--- NOTE | 2023-04-05 09:14 | MM ---
Reason for Exam: Screening (asymptomatic). Last mammogram was performed 1 year(s) and 5 month(s) ago. Patient History: Menarche at age 12. First Full-Term at age 27. Patient has history of breast feeding. Hormonal Contraceptives, starting at age 18. Last menstrual period: 06/08/2022 Risk Values: Chelo 5 year model risk: 0.5%. NCI Lifetime model risk: 10.2%. Prior Study Comparison: 07/14/2020 Bilateral Diagnostic Mammogram, [facility]. 11/19/2021 Bilateral MG 3D screening mammo w/cad, [facility]. Tissue Density: The breast tissue is heterogeneously dense. This may lower the sensitivity of mammography. Findings: Analyzed By CAD. There is no suspicious group of microcalcifications or new suspicious mass. Overall Assessment: Negative, BI-RAD 1 Management: Screening Mammogram of both breasts in [address] [facility] will attempt to contact patient to return for supplemental views and ultrasound if indicated. Patient should continue monthly self-breast exams. A clinical breast exam by your physician is recommended on an annual basis. This exam should not preclude additional follow-up of suspicious palpable abnormalities. Note on Chelo scores and lifetime risk: 1. A Chelo score greater than 3% is considered moderate risk. If this is the case, consider specialist referral to assess eligibility for a risk reducing agent. 2. If overall lifetime risk for the development of breast cancer is 20% or higher, the patient may qualify for future screening with alternating mammogram and breast MRI. Electronically signed and approved by: Earle Bangura DO
== END | disposition home or self-care (01) ==
LOC: RADMAMWWP 15:51
PROVIDERS: ATTEND Family Medicine
DX: Z12.31 Encounter for screening mammogram for malignant neoplasm of breast (principal)
CPT/HCPCS: 77063; 77067

== ENCOUNTER → 2023-11-17 | Outpatient (CLI) | payer OTHER ==
--- NOTE | 2023-11-17 17:28 | XR ---
EXAMINATION TYPE: XR clavicle RT DATE OF EXAM: 11/17/2023 COMPARISON: None HISTORY: Sprain of cervical ligamentous TECHNIQUE: 2 view right clavicle FINDINGS: No acute fracture or dislocation evident. Sternoclavicular and acromioclavicular junctions appear normal. Follow up exams can be performed as clinically indicated. IMPRESSION: 1. No acute osseous abnormality right clavicle [facility], , 11/17/2023 5:26 PM
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
== END | disposition home or self-care (01) ==
LOC: RADXRMAIN 16:30
PROVIDERS: ATTEND Emergency Medicine
DX: S13.4XXA Sprain of ligaments of cervical spine, initial encounter (principal); S20.211A Contusion of right front wall of thorax, initial encounter; R10.84 Generalized abdominal pain; M40.292 Other kyphosis, cervical region
CPT/HCPCS: 71046; 72050

== ENCOUNTER → 2023-11-22 | Outpatient (CLI) | payer OTHER ==
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
== END | disposition home or self-care (01) ==
LOC: RADXRMAIN 17:39
PROVIDERS: ATTEND Emergency Medicine
DX: S43.401D Unspecified sprain of right shoulder joint, subsequent encounter

== ENCOUNTER → 2023-11-24 | Outpatient (CLI) | payer OTHER ==
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
--- NOTE | 2023-11-24 17:31 | XR ---
EXAMINATION TYPE: XR clavicle RT DATE OF EXAM: 11/24/2023 5:03 PM CLINICAL INDICATION: Female, 38 years old with history of [id number] RT CLVICAL PAIN; [facility] COMPARISON: same day radiographs TECHNIQUE: XR clavicle RT examined in AP and cephalic tilt views . FINDINGS: No evidence of acute or chronic osseous pathology, joint dislocation or soft tissue swelling. IMPRESSION: Normal clavicle. [facility], , 11/24/2023 5:28 PM
== END | disposition home or self-care (01) ==
LOC: RADXRMAIN 15:50
PROVIDERS: ATTEND Emergency Medicine
DX: S20.211D Contusion of right front wall of thorax, subsequent encounter

== ENCOUNTER 2024-01-14 18:43 | Observation (INO) | payer OTHER ==
[2024-01-14] MEDS: SODIUM CHLORIDE 0.9% 1,000 ML IV STA (19:54)
[2024-01-14] MEDS: MECLIZINE 12.5 MG TAB PO STA (19:54)
[2024-01-14] MEDS: METOCLOPRAMIDE 5 MG/ML 2 ML VIAL IVP STA (19:56)
[2024-01-14 19:58] LABS: Basophils # (A) 0.1 k/uL (0-0.2); Basophils % (A) 1 %; Eosinophils # (A) 0.5 k/uL (0-0.7); Eosinophils % (A) 4 %; HCT 44.7 % (34.0-46.0); HGB 14.5 gm/dL (11.4-16.0); Lymphocytes # (A) 4.5 k/uL (1.0-4.8); Lymphocytes % (A) 38 %; MCH 30.8 pg (25.0-35.0); MCHC 32.5 g/dL (31.0-37.0); MCV 94.8 fL (80.0-100.0); Mean Platelet Volume 7.5; Monocytes # (A) 0.5 k/uL (0-1.0); Monocytes % (A) 4 %; Neutrophils # (A) 6.1 k/uL (1.3-7.7); Neutrophils % (A) 51 %; Platelet Count 296 k/uL (150-450); RBC 4.71 m/uL (3.80-5.40); RDW 12.6 % (11.5-15.5); WBC 11.9 k/uL (3.8-10.6)
[2024-01-14 20:04] LABS: INR 0.9 (<1.2); Prothrombin Time 10.1 sec (10.0-12.5)
[2024-01-14 20:12] LABS: ALT 12 U/L (4-34); AST 19 U/L (14-36); African American GFR (CKD) >90 (>60 ml/min/1.73 sqM); Albumin 4.1 g/dL (3.5-5.0); Alkaline Phosphatase 76 U/L (38-126); Anion Gap 5 mmol/L; Blood Urea Nitrogen 15 mg/dL (7-17); Calcium 9.5 mg/dL (8.4-10.2); Carbon Dioxide 26 mmol/L (22-30); Chloride 108 mmol/L (98-107); Glucose 88 mg/dL (74-99); Non-African American GFR(CKD) 78 (>60 ml/min/1.73 sqM); Potassium 4.2 mmol/L (3.5-5.1); Sodium 139 mmol/L (137-145); Total Bilirubin 0.4 mg/dL (0.2-1.3); Total Protein 6.9 g/dL (6.3-8.2)
--- NOTE | 2024-01-14 20:37 | CT ---
EXAMINATION TYPE: CT brain wo con DATE OF EXAM: 01/14/2024 8:34 PM COMPARISON: None. CLINICAL INDICATION: Female, 38 years old with history of Headache with dizziness, Headache with dizz iness TECHNIQUE: CT of the brain is performed utilizing 3 mm thick sections through the posterior fossa and 3 mm thick sections through the remaining calvarium. Study is performed within 24 hours of arrival to the hospital. Contrast used: mL of , (none if empty) CT DLP: 1100.6 mGycm, Automated exposure control for dose reduction was used. FINDINGS: No abnormal hyperdensity is present to suggest an acute intracranial hemorrhage. No mass lesion is evident. No acute infarcts are evident. Ventricles and sulci are appropriate for the patient age. Paranasal sinuses and mastoid air cells within the [id number] are clear. IMPRESSION: 1. No acute intracranial process. Follow up MRI can be performed as clinically indicated. [facility], , 01/14/2024 8:35 PM
--- NOTE | 2024-01-14 21:00 | CT ---
EXAMINATION TYPE: CT angio head neck DATE OF EXAM: 01/14/2024 8:45 PM COMPARISON: None. CLINICAL INDICATION: Female, 38 years old with history of Headache with dizziness, Headache with dizz iness TECHNIQUE: CTA scan is performed with axial images are obtained, coronal and sagittal reformatted any ges are reviewed. 3-D reconstructed images are created on an independent workstation and reviewed. S ource images are reviewed. NASCET criteria was used in interpretation of this exam? Contrast used:65mL mL of Isovue 370 with IV Contrast, (none if empty) Oral contrast used: (none if empty) CT DLP: 720.8 mGycm, Automated exposure control for dose reduction was used. FINDINGS: Carotid/Vascular Structures: There is a 3 vessel arch. Common carotid arteries bifurcate into internal and external carotid arteries without significant mainor w limiting stenosis. Vertebral arteries are codominant. Internal carotid arteries and vertebral arteries are patent to the skull base. Cervical of [place]: Vertebral basilar system appears normal. Posterior cerebral vasculature is unrema rkable. Internal carotid arteries bifurcate normally into A1 and M1 segments. A2 segments are normal. The anterior communicating artery is patent. The right posterior communicating artery is absent. The left posterior communicating artery is patent. IMPRESSION: 1. No flow-limiting stenosis bilateral carotid bifurcations. 2. Normal [place] [facility], , 01/14/2024 8:58 PM
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
[2024-01-14] MEDS: SCOPOLAMINE 1 MG/72 HR PATCH TRANSDERM STA (21:24)
[2024-01-14] MEDS: KETOROLAC 15 MG/ML 1 ML VIAL IVP STA (22:11)
[2024-01-14] MEDS ORDERED: NALOXONE 0.4 MG/ML 1 ML VIAL IV PRN (22:58)
[2024-01-14] MEDS ORDERED: ONDANSETRON 4 MG/2 ML VIAL IVP PRN (22:58)
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
[2024-01-15] MEDS: MECLIZINE 25 MG TAB PO PRN ×2 (03:07→21:20)
[2024-01-15] MEDS: KETOROLAC 15 MG/ML 1 ML VIAL IVP PRN (07:56)
[2024-01-15] MEDS: PANTOPRAZOLE 40 MG TABLET PO SCH (07:57)
[2024-01-15] MEDS: ENOXAPARIN 40 MG/0.4 ML SYRINGE SQ SCH (08:37)
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
[2024-01-16 07:24] VITALS: BP 92/63
[2024-01-16 08:57] LABS: BUN/Creat Ratio 13.33 Ratio (12.00-20.00); Calcium 8.4 mg/dL (8.7-10.3); Chloride 108 mmol/L (96-109); Glucose 86 mg/dL (70-110); Potassium 4.3 mmol/L (3.5-5.5); Sodium 141 mmol/L (135-145)
[2024-01-16 10:27] LABS: Basophils # (A) 0.05 X 10*3/uL (0.00-0.10); Basophils % (A) 0.5 %; Eosinophils # (A) 0.41 X 10*3/uL (0.04-0.35); Eosinophils % (A) 4.4 %; HCT 42.2 % (37.2-46.3); HGB 13.3 g/dL (12.0-15.0); Lymphocytes # (A) 4.52 X 10*3/uL (0.90-5.00); MCH 30.9 pg (27.0-32.0); MCHC 31.5 g/dL (32.0-37.0); MCV 97.9 FL (80.0-97.0); Mean Platelet Volume 10.2 FL (9.5-12.2); Monocytes % (A) 6.4 %; NRBC Per 100 WBC 0 X 10*3/uL (0.00-0.01); Neutrophils # (A) 3.79 X 10*3/uL (1.80-7.70); Neutrophils % (A) 40.3 %; Platelet Count 239 X 10*3/uL (140-440); RBC 4.31 X 10*6/uL (4.10-5.20); RDW 12.9 % (11.5-14.5); WBC 9.41 X 10*3/uL (4.50-10.00)
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
[2024-01-16 14:16] VITALS: PULSE 82; RESP 16; TEMP 97.6
[2024-01-16] MEDS ORDERED: LORATADINE 10 MG TAB PO PRN (14:23)
--- NOTE | 2024-01-16 16:45 | MR ---
EXAMINATION TYPE: MR brain/cspine wo/w DATE OF EXAM: 01/16/2024 4:38 PM COMPARISON: 01/14/2024.. CLINICAL INDICATION: Female, 38 years old with history of vertigo r/o peripheral stroke; HH, Vertigo, R/O peripheral stroke TECHNIQUE: Multi planar, multi sequence imaging was performed through the brain including: T1, T2, Inversion rec overy, Diffusion weighted imaging, and gradient echo imaging. No gadolinium was given. Multi planar, multi sequence imaging was performed utilizing: T1-weighted, T2-weighted, and turbo inv ersion recovery imaging of the cervical spine. IV Contrast: 9 mL Gadobutrol FINDINGS: The leo-white junctions, ventricular system, basal cisterns appear unremarkable. Patchy areas of h igh T2 signal intensity are seen within the periventricular white matter. Midline structures show no abnormality. Diffusion-weighted imaging shows no evidence of restricted diffusion. The susceptibility weighted images do not reveal any evidence for micro-hemorrhage. The bone marrow signal is within normal limits. Paranasal sinuses and mastoid air cells: No significant paranasal sinus disease. Visualized orbits: Orbital contents are intact. Alignment: The cervical vertebral bodies have preserved heights. Alignment is within normal limits gi ngozi patient positioning. Bones: Bone signal is within normal limits. No abnormal bone marrow edema on inversion recovery seque nces. Cord: The spinal cord is unremarkable with regards to their signal intensity and morphology. Discs: Intervertebral disc signal is maintained. C2-C3: No significant disc pathology. The spinal canal is patent. No neural foraminal stenosis. C3-C4: No significant disc pathology. The spinal canal is patent. No neural foraminal stenosis. C4-C5: No significant disc pathology. The spinal canal is patent. No neural foraminal stenosis. C5-C6: No significant disc pathology. The spinal canal is patent. No neural foraminal stenosis. C6-C7: No significant disc pathology. The spinal canal is patent. No neural foraminal stenosis. C7-T1: No significant disc pathology. The spinal canal is patent. No neural foraminal stenosis. Other: None. IMPRESSION: 1. No evidence of intracranial mass or acute/subacute infarct. 2. No evidence for disc herniation or significant spinal canal stenosis. 3. No significant disc degeneration. No abnormal postcontrast enhancement. [facility], , 01/16/2024 4:43 PM
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
== END 2024-01-16 18:15 | disposition home or self-care (01) ==
LOC: EC 18:43 → 6NMEDSUR 22:27
PROVIDERS: ADMIT Internal Medicine; ATTEND Internal Medicine
DX: R42 Dizziness and giddiness (principal); R20.0 Anesthesia of skin; R51.9 Headache, unspecified; M54.2 Cervicalgia; J45.20 Mild intermittent asthma, uncomplicated; Z79.899 Other long term (current) drug therapy; Z88.0 Allergy status to penicillin; Z88.1 Allergy status to other antibiotic agents; Z91.040 Latex allergy status; Z87.828 Personal history of other (healed) physical injury and trauma; Z87.891 Personal history of nicotine dependence; Z87.01 Personal history of pneumonia (recurrent); Z83.2 Family history of diseases of the blood and blood-forming organs and certain disorders involving the immune mechanism
CPT/HCPCS: 96376 ×3; 96361; 96372 ×2; 96374; 99285; 36415; 93005; 97161; 80053; 80048; 83605; 84484; 85025 ×2; 85610; 70496; 70450; 70498; 70553; 72156; G0378 ×3; J2765; J1650 ×2; J1885 ×3; Q9967; A9585

== ENCOUNTER → 2024-02-12 | Outpatient (CLI) | payer BC ==
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
== END | disposition home or self-care (01) ==
LOC: RADMRIMAIN 20:45
PROVIDERS: ATTEND Family Medicine
DX: M25.511 Pain in right shoulder (principal)
CPT/HCPCS: 73223; A9585